=== PATIENT | female | born 1995 | race Native Hawaiian/Other Pacific Islander ===

== ENCOUNTER 2022-12-05 10:26 | Outpatient (AMB) | payer OTHER, SELFPAY ==
[2022-12-05 10:29] VITALS: BP 90/62; PULSE 65; O2SAT 98; BMI 28.5
--- NOTE | 2022-12-05 10:29 | MHC.PC.OV ---
Vital Signs 12/05/22 10:29 Height 4 ft 11 in Weight 141 lb 0.2 oz BMI 28.5 BP 90/62 Blood Pressure Location Lt brachial Position Sitting Pulse 65 Pulse Source Pulse Oximeter Temp Source Skin Pulse Oximetry (%) 98 Oxygen Delivery Method Room Air Intake Visit Reasons: Annual Exam Intake Note: Patient is here today for a physical. Rn Building Required: No Allergies codeine [CODEINE] Allergy (Severe, Verified 12/05/22 10:47) SWELLING acetaminophen [Tylenol-Codeine] Allergy (Unknown, Verified 12/05/22 10:47) SWELLING Medication List - Last Reconciled 12/05/22 by JUNE Ross No Known Home Meds Tobacco use date assessed: 12/05/22 Dental Screening Dental Screen Date: 12/05/22 Did you have a dental visit in the last 12 months?: No Did you have a dental problem in the last 6 months where you did not have access to dental care?: No HPI Annual Exam HPI Details Patient is a 27-year-old female who presents today for physical exam. Patient of Dr. Olson. Medical history significant for macromastia. Patient denies shortness of breath or chest pain. She reports normal Pap smear 2020 with [facility]. Tdap 06/2021. Patient is due for dental exam, she will call. Does not see eye doctor, denies problems with her eyes. [facility] Surgical History History of Family History Father GERD (gastroesophageal reflux disease) Mother GERD (gastroesophageal reflux disease) Anemia Maternal Grandmother Breast cancer Diabetes Hypertension Paternal Grandfather Diabetes Hypertension Social History Housing: Apartment Alcohol intake: former Patient Tobacco Use Status: Former Tobacco user Tobacco use type: Cigarette e-Cigarette/Vaping Use: Never Used Second Hand Smoke Exposure: No service: No Current occupational status: unemployed Cognitive needs: No Hearing needs: No Vision needs: No Questionnaire PHQ-9 Over the last 2 weeks, how often have you been bothered by any of the following problems? 1. Little interest or pleasure in doing things: not at all 2. Feeling down, depressed, or hopeless: not at all 3. Trouble falling or staying asleep, or sleeping too much: not at all 4. Feeling tired or having little energy: not at all 5. Poor appetite or overeating: not at all 6. Feeling bad about yourself - or that you are a failure or have let yourself or your family down: not at all 7. Trouble concentrating on things, such as reading the newspaper or watching television: not at all 8. Moving or speaking so slowly that other people could have noticed. Or the opposite - being so fidgety or restless that you have been moving around a lot more than usual: not at all 9. Thoughts that you would be better off or of hurting yourself in some way: not at all Total score: 0 Depression Screening Interpretation: Negative Depression Screening Done: Yes 02723 - PHQ-9 Billing: Yes Source: Developed by Drs. Lm Nice, Kennedi Roe, Darryl Harvey and colleagues, with an educational mckayla from [employer]. Thrive Questionnaire Date Thrive assessed: 12/05/22 I am a: Patient What is your living situation today?: I have a steady place to live Within the past 12 months, did the food you bought not last and you didn't have the money to get more?: Never true Within the past 12 months, did you worry whether your food would run out before you got money to buy more?: Never true Do you have trouble paying for medicines?: No Do you have trouble getting transportation to medical appointments?: No Do you have trouble paying your heating and electricity bill?: No Do you have trouble taking care of your child, family member or friend?: No Do you have trouble with day-to-day activities such as bathing, preparing meals, shopping, managing finances, etc.?: No Are you currently unemployed and looking for a job?: No Are you interested in more education?: No Currently or been in a relationship where the following occur: no concerns reported AUDIT C Alcohol Use Questionnaire (AUDIT-C) 1. How often do you have a drink containing alcohol?: Never 2. How many drinks containing alcohol do you have on a typical day when you are drinking?: 1 or 2 (0) 3. How often do you have six or more drinks on one occasion?: Never Total Score: 0 Score Reviewed/Action Taken: No ERNESTINE-7 AMB Questionnaire ERNESTINE-7 Date ERNESTINE - 7 assessed: 12/05/22 Feeling nervous, anxious, or on edge: 0 = Not at all Not being able to stop or control worryin = Not at all Worrying too much about different things: 0 = Not at all Trouble relaxin = Not at all Being so restless that it is hard to sit still: 0 = Not at all Becoming easily annoyed or irritable: 0 = Not at all Feeling afraid as if something awful might happen: 0 = Not at all Total ERNESTINE-7 score (0-4 normal; 5-9 mild; 10-14 moderate; 15-21 severe): 0 Source: Developed by Drs. Lm Nice, Kennedi Roe, Darryl Harvey and colleagues, with an educational mckayla from [employer]. ERNESTINE-7 Assessment Billing ERNESTINE-7 Assessment Tool: ERNESTINE-7 Assessment 93491 Review of Systems Const Denies body aches, Denies chills, Denies fever(s) and Denies headache(s) Eyes Denies change in vision ENT Denies dizziness, Denies otalgia, Denies headache(s), Denies nasal discharge, Denies sinus pain and Denies sore throat Card Denies chest pain, Denies edema, Denies lightheadedness and Denies dyspnea Resp Denies cough, Denies dyspnea and Denies wheezing GI Denies abdominal pain, Denies constipation, Denies diarrhea, Denies nausea and Denies vomiting Denies dysuria Musc Denies myalgias Skin/Breast Denies rash Neuro Denies dizziness and Denies headache(s) Aller/Immun Denies wheezing Physical exam (Primary Care) Vital Signs: Last Vital Signs Pulse 65 12/05/22 10:29 BP 90/62 12/05/22 10:29 Pulse Ox 98 12/05/22 10:29 Oxygen Delivery Method Room Air 12/05/22 10:29 BMI result Body Mass Index 28.5 Tobacco/Smoking Status: Tobacco use Status Tobacco use date assessed 12/05/22 12/05/22 10:34 Patient Tobacco Use Status Former Tobacco user 12/05/22 10:34 Tobacco use type Cigarette 12/05/22 10:34 e-Cigarette/Vaping Use Never Used 10/05/23 10:34 PHQ-9: PHQ-9 Score PHQ-9: Total score 0 12/05/22 10:48 Depression Screening Interpretation: Negative Thrive Assessment: Date of Thrive Assessment Date Thrive assessed 12/05/22 12/05/22 10:34 Currently or been in a relationship where the following occur: no concerns reported Const General: cooperative and no acute distress Orientation/consciousness: patient oriented x3 HENMT Head: Yes normocephalic and Yes atraumatic Ears: TM's normal bilaterally Face and sinus: Yes sinuses nontender Mouth: oropharynx normal and moist mucous membranes Throat: Yes posterior oropharynx normal Eyes General: appearance normal, both eyes and all related structures Pupils: Equal, round and reactive pupils present EOM: EOMs intact bilaterally Neck Neck: Yes normal visual inspection, Yes full ROM and Yes no lymphadenopathy Thyroid: Thyroid normal Resp Effort & Inspection: normal respiratory effort and able to speak in complete sentences Auscultation: clear to auscultation bilaterally, no crackles, no rales, no rhonchi and no wheezes Cardio Rate: regular rate Rhythm: regular rhythm Heart sounds: S1 normal heart sound present, S2 normal heart sound present and no murmurs GI Palpation (GI): Soft to palpation, not firm, nontender, no guarding, not rigid and no hepatosplenomegaly Auscultation: normal bowel sounds General: No CVA tenderness Back/Spine/Pelvis Back: No CVA tenderness Skin General skin exam: no rashes or lesions noted Neuro General: patient oriented x3 Cranial nerves: Yes Equal, round and reactive pupils present Gait exam (Neuro): Normal gait present Extrem General: Yes full ROM and No edema Office Procedures Flu Questionnaire Does the patient have a severe egg allergy?: No Does the patient have severe life threatening allergies?: No Does the patient have a fever or illness today?: No Has the patient ever had Guillain-[place] Syndrome?: No Has the patient ever had any past reaction to a flu shot?: No Immunizations flu vacc [id number] 6mos up(PF) 60 mcg(15 mcgx4)/0.5 mL IM syringe Performing Provider: JUNE Ross [facility] Documented (not given) by: HARJEET Mueller on 12/05/22 10:42 Reason Not Given: Patient Refused Assessment and Plan Assessment & Plan (1) Physical exam: Code(s): Z00.00 - Encounter for general adult medical examination without abnormal findings Plan: Repeat in 1 year Blood work ordered Orders: Orders Influenza [id number] Immunization Today Z23 - Encounter for immunization Complete Blood Count Auto Diff Today Z00.00 - Encounter for general adult medical examination without abnormal findings Vitamin D 25-OH Total Today Z00.00 - Encounter for general adult medical examination without abnormal findings Vitamin B12 and Folate Today Z00.00 - Encounter for general adult medical examination without abnormal findings TSH reflex Free T4 Today Z00.00 - Encounter for general adult medical examination without abnormal findings Comprehensive [place]. Panel Fast Today Z00.00 - Encounter for general adult medical examination without abnormal findings Coding Level of Care Code Est Pt Prev Care 18-39y(46249) Diagnoses Physical exam Z00.00 Additional Codes ERNESTINE-7 Assessment Billing - ERNESTINE-7 Assessment Tool: ERNESTINE-7 Assessment 46399 ([id number])
== END 2022-12-05 10:57 | disposition home or self-care (01) ==
PROVIDERS: PCP Internal Medicine; Visit Provider Nurse Practitioner Family
DX: Z00.00 Encounter for general adult medical examination without abnormal findings (principal)
CPT/HCPCS: 99395

== ENCOUNTER 2022-12-05 11:03 | Outpatient (REF) | payer OTHER, SELFPAY | END 2022-12-05 11:04 | disposition home or self-care (01) | LOC: HO.LAB 11:03 | PROVIDERS: PCP Internal Medicine; Visit Provider Nurse Practitioner Family | DX: Z00.00 Encounter for general adult medical examination without abnormal findings (principal) | CPT/HCPCS: 36415; 80053; 82306; 82607; 82746; 84443; 85025 ==

== ENCOUNTER 2023-06-13 12:36 | Outpatient (REF) | payer OTHER, SELFPAY ==
--- NOTE | ~2023-06-13 | XR_ITS ---
EXAMINATION: XR LUMBOSACRAL SPINE CLINICAL INFORMATION: Low back pain, unspecified COMPARISON: None available. TECHNIQUE: Three views of the lumbosacral spine. FINDINGS: No fracture. There are 5 nonrib-bearing lumbar-type vertebral bodies. The height of vertebral bodies is well-maintained. There is straightening of the usual lumbar lordosis which can be seen with muscle spasm. The disc space and facet joints are well maintained. There is no spondylolisthesis. XR/XR lumbar spine 2-3V IMPRESSION: Muscle spasm.
== END 2023-06-13 12:37 | disposition home or self-care (01) ==
LOC: HO.XRAY 12:36
PROVIDERS: PCP Internal Medicine; Visit Provider Internal Medicine
DX: M54.50 Low back pain, unspecified (principal)
CPT/HCPCS: 72100

== ENCOUNTER 2023-12-15 10:13 | Outpatient (AMB) | payer OTHER, SELFPAY ==
--- NOTE | 2023-12-15 10:18 | A.OFFPC_ITS ---
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 Accompanied by: Self / Same As Patient Allergies codeine [CODEINE] Allergy (Severe, Verified 12/15/23 10:31) SWELLING acetaminophen [Tylenol-Codeine] Allergy (Unknown, Verified 12/15/23 10:31) SWELLING Medication List - Last Reconciled 12/15/23 by Kimber Snow MD No Known Home Meds Tobacco use date assessed: 12/15/23 Dental Screening Dental Screen Date: 12/15/23 Did you have a dental visit in the last 12 months?: No Did you have a dental problem in the last 6 months where you did not have access to dental care?: No Was dental information given to patient?: Patient has dentist HPI HPI Comments History of Present Illness Details This is a 28-year-old female that comes for her physical exam. She denies any acute complaints. Last Pap smear was 2023 as per patient was normal. No chest pain or shortness on breath. Declines flu vaccine. [facility] Surgical History History of Family History Father GERD (gastroesophageal reflux disease) Mother GERD (gastroesophageal reflux disease) Anemia Maternal Grandmother Breast cancer Diabetes Hypertension Paternal Grandfather Diabetes Hypertension Social History Housing: Apartment Alcohol intake: former Patient Tobacco Use Status: Former Tobacco user Tobacco use type: Cigarette e-Cigarette/Vaping Use: Never Used Second Hand Smoke Exposure: No service: No Current occupational status: unemployed Cognitive needs: No Hearing needs: No Vision needs: No Questionnaire PHQ-9 Over the last 2 weeks, how often have you been bothered by any of the following problems? 1. Little interest or pleasure in doing things: not at all 2. Feeling down, depressed, or hopeless: not at all 3. Trouble falling or staying asleep, or sleeping too much: several days 4. Feeling tired or having little energy: several days 5. Poor appetite or overeating: not at all 6. Feeling bad about yourself - or that you are a failure or have let yourself or your family down: not at all 7. Trouble concentrating on things, such as reading the newspaper or watching television: not at all 8. Moving or speaking so slowly that other people could have noticed. Or the opposite - being so fidgety or restless that you have been moving around a lot more than usual: not at all 9. Thoughts that you would be better off or of hurting yourself in some w ay: not at all Total score: 2 Depression Screening Interpretation: Positive Depression Screening Follow-up: Existing condition and Follow-up Visit Requested Depression Screening Done: Yes 97479 - PHQ-9 Billing: Yes Source: Developed by Drs. Lm Nice, Kennedi Roe, Darryl Harvey and colleagues, with an educational mckayla from [employer]. Thrive Questionnaire Date Thrive assessed: 12/15/23 I am a: Patient What is your living situation today?: I have a steady place to live Within the past 12 months, did the food you bought not last and you didn't have the money to get more?: Never true Within the past 12 months, did you worry whether your food would run out before you got money to buy more?: Never true Do you have trouble paying for medicines?: No Do you have trouble getting transportation to medical appointments?: No Do you have trouble paying your heating and electricity bill?: No Do you have trouble taking care of your child, family member or friend?: No Do you have trouble with day-to-day activities such as bathing, preparing meals, shopping, managing finances, etc.?: No Are you currently unemployed and looking for a job?: No Are you interested in more education?: No Please select the resources that you would like help with: None Currently or been in a relationship where the following occur: No concerns reported THRIVE Score: 0 AUDIT C Alcohol Use Questionnaire (AUDIT-C) 1. How often do you have a drink containing alcohol?: Never Total Score: 0 Score Reviewed/Action Taken: No ERNESTINE-7 AMB Questionnaire ERNESTINE-7 Date ERNESTINE - 7 assessed: 10/14/24 Feeling nervous, anxious, or on edge: 0 = Not at all Not being able to stop or control worryin = Not at all Worrying too much about different things: 0 = Not at all Trouble relaxin = Not at all Being so restless that it is hard to sit still: 0 = Not at all Becoming easily annoyed or irritable: 0 = Not at all Feeling afraid as if something awful might happen: 0 = Not at all Total ERNESTINE-7 score (0-4 normal; 5-9 mild; 10-14 moderate; 15-21 severe): 0 Source: Developed by Drs. Lm Nice, Kennedi Roe, Darryl Harvey and colleagues, with an educational mckayla from [employer]. ERNESTINE-7 Assessment Billing ERNESTINE-7 Assessment Tool: ERNESTINE-7 Assessment 60460 Review of Systems Const All systems reviewed & are unremarkable except as noted in HPI and below Card Denies chest pain at rest, Denies chest pain with activity, Denies edema, Denies irregular heart rhythm, Denies claudication, Denies dyspnea, Denies dyspnea on exertion, Denies orthopnea, Denies paroxysmal nocturnal dyspnea and Denies slow heart rate Resp Denies cough, Denies dyspnea and Denies dyspnea on exertion GI Denies abdominal pain, Denies change in bowel habits, Denies excessive flatus, Denies nausea and Denies vomiting Denies urinary incontinence, Denies urinary hesitancy and Denies urinary urgency Musc Denies abnormal gait, Denies atrophy, Denies deformity and Denies limited range of motion Skin/Breast Denies bleeding lesions, Denies changing lesions and Denies rash Neuro Denies abnormal gait, Denies behavioral changes and Denies lack of coordination Psych Denies behavioral changes Physical exam (Primary Care) Vital Signs: Last Vital Signs BP 110/72 12/15/23 10:19 BMI result Body Mass Index 29.1 BMI Assessment/Plan discussion: High BMI High, discussed plan: lifestyle and weight reduction Tobacco/Smoking Status: Tobacco use Status Tobacco use date assessed 12/15/23 12/15/23 10:24 Patient Tobacco Use Status Former Tobacco user 12/15/23 10:24 Tobacco use type Cigarette 12/15/23 10:24 e-Cigarette/Vaping Use Never Used 12/15/23 10:24 PHQ-9: PHQ-9 Score PHQ-9: Total score 2 12/15/23 10:24 Depression Screening Interpretation: Positive Depression Screening Follow-up: Existing condition and Follow-up Visit Requested Thrive Assessment: Date of Thrive Assessment Date Thrive assessed 12/15/23 12/15/23 10:24 Currently or been in a relationship where the following occur: No concerns reported [facility] Head: Yes normal to inspection, Yes normocephalic and Yes atraumatic Ears: external ears normal Eyes General: appearance normal, both eyes and all related structures Eyelids: Yes eyelids normal Conjunctivae: conjunctivae normal Neck Neck: Yes normal visual inspection and Yes supple Resp Effort & Inspection: normal respiratory effort Auscultation: clear to auscultation bilaterally Cardio Jugular venous distension: no JVD Rate: regular rate Rhythm: regular rhythm Heart sounds: S1 normal heart sound present and S2 normal heart sound present GI Inspection: Yes normal to inspection Palpation (GI): Soft to palpation and nontender Auscultation: normal bowel sounds Skin General skin exam: no rashes or lesions noted Neuro General: no focal motor deficits Extrem General: Yes full ROM Psych Appearance: grossly normal Office Procedures Flu Questionnaire Does the patient have a severe egg allergy?: No Immunizations Fluarix Triv [id number] (PF) 45 mcg (15 mcg x 3)/0.5 mL IM syringe Performing Provider: Kimber Snow MD [facility] Documented (not given) by: HARJEET Donnelly on 12/15/23 10:24 Reason Not Given: Patient Refused Coding Level of Care Code Est Pt Prev Care 18-39y(77033) Diagnoses Physical exam Z00.00 Additional Codes ERNESTINE-7 Assessment Billing - ERNESTINE-7 Assessment Tool: ERNESTINE-7 Assessment 95234 ([id number]) Time Spent (min) 30 Assessment & Plan Assessment & Plan (1) Physical exam: Code(s): Z00.00 - Encounter for general adult medical examination without abnormal findings Category: Medical Plan: Repeat in a year. Orders: Orders Influenza [id number] Immunization Today Z23 - Encounter for immunization Complete Blood Count Auto Diff Today D64.9 - Anemia, unspecified IRON PROFILE Today D64.9 - Anemia, unspecified Vitamin D 25-OH Total Today E55.9 - Vitamin D deficiency, unspecified Lipid Panel Today Z00.00 - Encounter for general adult medical examination without abnormal findings Comprehensive [place]. Panel Fast Today Z00.00 - Encounter for general adult medical examination without abnormal findings
[2023-12-15 10:19] VITALS: BP 110/72; BMI 29.1
== END 2023-12-15 10:40 | disposition home or self-care (01) ==
PROVIDERS: PCP Internal Medicine; Visit Provider Internal Medicine
DX: Z23 Encounter for immunization (principal); Z00.00 Encounter for general adult medical examination without abnormal findings

== ENCOUNTER 2024-08-02 15:44 | Outpatient (AMB) | payer OTHER, SELFPAY ==
--- NOTE | 2024-08-02 15:48 | A.OFFPC_ITS ---
Vital Signs 08/02/24 15:49 Height 4 ft 11 in Weight 149 lb BMI 30.1 BP 120/70 Blood Pressure Location Lt brachial Position Sitting Intake Visit Reasons: Stomach Issues Jukebox Checker Required: No Accompanied by: Self / Same As Patient Allergies codeine [CODEINE] Allergy (Severe, Verified 08/02/24 16:01) SWELLING acetaminophen [Tylenol-Codeine] Allergy (Unknown, Verified 08/02/24 16:01) SWELLING Medication List - Last Reconciled 08/02/24 by Kimber Snow MD No Known Home Meds Tobacco use date assessed: 08/02/24 Dental Screening Dental Screen Date: 08/02/24 Did you have a dental visit in the last 12 months?: Yes Did you have a dental problem in the last 6 months where you did not have access to dental care?: No Was dental information given to patient?: Patient has dentist HPI HPI Comments History of Present Illness Details The patient is a 29-year-old female presenting with abdominal bloating and anxiety with palpitations. The abdominal bloating is frequent and aggravated by various foods, including bread, flour, and milk, though it occurs persistently regardless of dietary intake. She has a history of prolonged menstrual periods and was diagnosed with an ovarian cyst a few years ago. She denies any diarrhea or blood in stools and reports normal bowel movements. Additionally, she exhibits signs of anxiety, as evidenced by eyelid twitching, and describes episodes of sudden, unexpected palpitations while at rest, which she attributes to stress. [facility] Surgical History History of Family History Father GERD (gastroesophageal reflux disease) Mother GERD (gastroesophageal reflux disease) Anemia Maternal Grandmother Breast cancer Diabetes Hypertension Paternal Grandfather Diabetes Hypertension Social History Housing: Apartment Alcohol intake: former Patient Tobacco Use Status: Former Tobacco user Tobacco use type: Cigarette e-Cigarette/Vaping Use: Never Used Second Hand Smoke Exposure: No service: No Current occupational status: unemployed Cognitive needs: No Hearing needs: No Vision needs: No Questionnaire PHQ-9 Over the last 2 weeks, how often have you been bothered by any of the following problems? 1. Little interest or pleasure in doing things: several days 2. Feeling down, depressed, or hopeless: several days 3. Trouble falling or staying asleep, or sleeping too much: several days 4. Feeling tired or having little energy: several days 5. Poor appetite or overeating: several days 6. Feeling bad about yourself - or that you are a failure or have let yourself or your family down: several days 7. Trouble concentrating on things, such as reading the newspaper or watching television: several days 8. Moving or speaking so slowly that other people could have noticed. Or the opposite - being so fidgety or restless that you have been moving around a lot more than usual: not at all 9. Thoughts that you would be better off or of hurting yourself in some way: not at all Total score: 7 Depression Screening Interpretation: Positive Depression Screening Follow-up: Existing condition and Follow-up Visit Requested Depression Screening Done: Yes 89727 - PHQ-9 Billing: Yes Source: Developed by Drs. Lm Nice, Kennedi Roe, Darryl Harvey and colleagues, with an educational mckayla from [employer]. Thrive Questionnaire Date Thrive assessed: 08/02/24 I am a: Patient What is your living situation today?: I have a steady place to live Within the past 12 months, did the food you bought not last and you didn't have the money to get more?: Never true Within the past 12 months, did you worry whether your food would run out before you got money to buy more?: Never true Do you have trouble paying for medicines?: No Do you have trouble getting transportation to medical appointments?: No Do you have trouble paying your heating and electricity bill?: Yes Do you have trouble taking care of your child, family member or friend?: No Do you have trouble with day-to-day activities such as bathing, preparing meals, shopping, managing finances, etc.?: No Are you currently unemployed and looking for a job?: No Are you interested in more education?: Yes Please select the resources that you would like help with: None Currently or been in a relationship where the following occur: No concerns reported THRIVE Score: 1 AUDIT C Alcohol Use Questionnaire (AUDIT-C) 1. How often do you have a drink containing alcohol?: Never Total Score: 0 Score Reviewed/Action Taken: No ERNESTINE-7 AMB Questionnaire ERNESTINE-7 Date ERNESTINE - 7 assessed: 08/02/24 Feeling nervous, anxious, or on edge: 0 = Not at all Not being able to stop or control worryin = Not at all Worrying too much about different things: 0 = Not at all Trouble relaxin = Not at all Being so restless that it is hard to sit still: 0 = Not at all Becoming easily annoyed or irritable: 0 = Not at all Feeling afraid as if something awful might happen: 0 = Not at all Total ERNESTINE-7 score (0-4 normal; 5-9 mild; 10-14 moderate; 15-21 severe): 0 Source: Developed by Drs. Lm Nice, Kennedi Roe, Darryl Harvey and colleagues, with an educational mckayla from [employer]. ERNESTINE-7 Assessment Billing ERNESTINE-7 Assessment Tool: ERNESTINE-7 Assessment 28940 Review of Systems Const All systems reviewed & are unremarkable except as noted in HPI and below Card Denies chest pain at rest, Denies chest pain with activity, Reports rapid heart rate, Denies edema, Denies irregular heart rhythm, Denies claudication, Denies dyspnea, Denies dyspnea on exertion, Denies orthopnea, Denies paroxysmal nocturnal dyspnea and Denies slow heart rate Resp Denies cough, Denies dyspnea and Denies dyspnea on exertion GI Reports abdominal pain, Reports bloating, Denies change in bowel habits, Denies excessive flatus, Denies nausea and Denies vomiting Denies urinary incontinence, Denies urinary hesitancy and Denies urinary urgency Physical exam (Primary Care) Vital Signs: Last Vital Signs BP 120/70 08/02/24 15:49 BMI result Body Mass Index 30.1 Tobacco/Smoking Status: Tobacco use Status Tobacco use date assessed 08/02/24 08/02/24 15:53 Patient Tobacco Use Status Former Tobacco user 08/02/24 15:53 Tobacco use type Cigarette 08/02/24 15:53 e-Cigarette/Vaping Use Never Used 08/02/24 15:53 PHQ-9: PHQ-9 Score PHQ-9: Total score 7 08/02/24 16:04 Depression Screening Interpretation: Positive Depression Screening Follow-up: Existing condition and Follow-up Visit Requested Thrive Assessment: Date of Thrive Assessment Date Thrive assessed 08/02/24 08/02/24 15:53 Currently or been in a relationship where the following occur: No concerns reported Resp Effort & Inspection: normal respiratory effort Auscultation: clear to auscultation bilaterally Cardio Jugular venous distension: no JVD Rate: regular rate Rhythm: regular rhythm Heart sounds: S1 normal heart sound present and S2 normal heart sound present GI Inspection: Yes normal to inspection Palpation (GI): Soft to palpation and nontender Auscultation: normal bowel sounds Extrem General: Yes full ROM Coding Level of Care Code Est Pt Level 3 (69009) Complex EM visit Add On G2211 Diagnoses Tachycardia R00.0 Abdominal bloating R14.0 Additional Codes ERNESTINE-7 Assessment Billing - ERNESTINE-7 Assessment Tool: ERNESTINE-7 Assessment 37084 ([id number]) PHQ-9 - 49918 - PHQ-9 Billing: Yes ([id number]) Time Spent (min) 19 Assessment & Plan Assessment & Plan (1) Tachycardia: Code(s): R00.0 - Tachycardia, unspecified Category: Medical (2) Abdominal bloating: Code(s): R14.0 - Abdominal distension (gaseous) Category: Medical Plan I plan to perform an abdominal ultrasound and test for celiac disease given her gastrointestinal symptoms. I prescribed a medication for bloating, to be taken with meals, and instructed the patient to stop if any psychotic side effects occur. To assess her anxiety-related palpitations, I plan to use a Holter monitor to evaluate her heart activity over 24 to 48 hours. Blood work will be completed to provide further insight into her health. She will have the freedom to conduct blood tests at her convenience and without fasting. Patient was informed and verbally consented to the use of an ambient scribe for clinic note documentation during this visit. I discussed with the patient the likely diagnosis of bloating related to food sensitivities and the possibility of anxiety contributing to her palpitations. The management plan includes abdominal ultrasound and laboratory tests for celiac disease. Medications for bloating were explained, with emphasis on their administration and potential side effects like psychosis, which warrant immediate discontinuation. Regarding her palpitations, we discussed using a Holter monitor to document any irregularities, explaining the process and keeping a symptom diary. I also emphasized the importance of contacting me if any new or worsening symptoms occur. Orders: Orders Complete Blood Count Auto Diff Today R14.0 - Abdominal distension (gaseous) Comprehensive Met. Panel Today R14.0 - Abdominal distension (gaseous) Celiac Diagnostic Gliadin TTG Today R14.0 - Abdominal distension (gaseous) ECG holter monitor 48 hour Today R00.0 - Tachycardia, unspecified Thyroid Stimulating Hormone Today R00.0 - Tachycardia, unspecified Medications: New dicyclomine 20 mg PO TID 90 tabs 3RF 30 days R14.0 - Abdominal distension (gaseous)
[2024-08-02 15:49] VITALS: BP 120/70; BMI 30.1
--- OUTSIDE RECORDS SUMMARY | 2024-08-02 16:51 | XMS_ITS | Clinical Summary ---
Author Organization [facility] [address] [facility] Address [address] [place], [place] Phone Care Team Providers Care Franchise Sales Representative Name Role Phone Bre Smith MD Primary Care Provider [phone] Allergies Active Allergy Reactions Criticality Noted Date Comments Codeine Swelling High 05/22/2017 Medications cholecalciferol (VITAMIN D-3) 50 mcg (2,000 unit) capsule Take 1 capsule (2,000 Units total) by mouth 1 (one) time each day. 05/12/2023 Active methocarbamoL (ROBAXIN) 750 mg tablet TAKE 1 TABLET BY MOUTH EVERY 8 HOURS X3 DAYS 06/23/2023 Active norethindrone-e thinyl estradiol (JUNEL FE 03/22) 1 mg-20 mcg (21)/75 mg (7) per tablet Take 1 tablet by mouth 1 (one) time each day. 28 tablet 11 06/22/2024 6 Active Active Problems Problem Noted Date Diagnosed Date Genital herpes 02/29/2020 Overview (06/21/2024): Episodic treament Last Assessment & Plan: Prescription for Valtrex suppression ordered today. Patient aware to start at 36 weeks. Encounters Date Type Department Care Team Description 07/19/2024 Telephone Obstetrics and Gynecology - [facility] [place] [address] [place] [id number] Cecily Proctor DO Metrorrhagia 06/22/2024 3:30 PM EDT Consult Obstetrics & Gynecology - [address] [address] Cecily Proctor DO Bilateral ovarian cysts (Primary Dx); Irregular menses 06/03/2024 Telephone Obstetrics & Gynecology - [facility] [address] [place] [address] Opal Erwin RN 06/03/2024 Telephone Obstetrics & Gynecology - [facility] [address] [place] [address] Shantal Tellez CNM Lab Results 06/01/2024 12:48 PM EDT - 06/01/2024 11:59 PM EDT Hospital Encounter [facility] Ultrasound [address] [place] [address] Discharge Disposition: Home or Self Care from Last 3 Months Immunizations Name Administration Dates Next Due Influenza Quadravalent, MDCK , 0.5ml, preservative free (Flucelvax) 6mo and older 12/04/2017 Tdap Tetanus diptheria acell ular pertussis (Boostrix; Adacel) 7yo and older 06/20/2021,07/18/2020,10/20/2017 Surgical History Surgery Date Site/Laterality Comments TUBAL LIGATION PROCEDURE: HISTORICAL TUBAL LIGATION; COMMENT: [facility] Medical History Medical History Date Comments History of shoulder dystocia in prior 2017 DX:History of shoulder dysto rufino in prior Genital herpes DX:Genital herpe s Type A blood, Rh positive 2019 DX:Typ e A blood, Rh positive History of 2019 novel naylor virus disease (COVID-19) 04/03/2021 DX:History of 2019 novel cor onavirus disease (COVID-19); COMMENT: Tested positive 03-21-21 COVID in @ aprrox 14 wks gestation *Mildly symptomatic (signs or sx without SOB or abnormal imaging) OR Moderately symptomatic (lower respiratory disease by clinical or imaging assessment AND O2 sat >93% RA): 81 mg ASA daily at diagnosis, growth 4-6 weeks after COVID or 32 weeks, whichever * Sterilization 02/14/2021 DX:Sterilization ; COMMENT: Desires tubal ligation, referral to [facility] placed Desires Depo-Provera prior to discharge after delivery. Supervision of other normal 02/14/2021 DX:Supervision of other normal ; COMMENT: 1. [facility] site: [facility] [address] [facility], [address] 2. Delivery site: [facility] 3. Mobile Mommas: Yes 4. Dating criteria: 1st trimester ultrasound only 5. Blood type: Lab Results Component Value Date BLDTYPE A POSITIVE 03/01/2020 6. Genetic screening: Date: Result: FIRST screen negative 6. GBS: Date: 7. FOB n* Marijuana use 05/26/2017 DX:Marijuana use ; COMMENT: 05/22/17 + Mj an initial ob intake; pt admitted to occasional use and stopped when first learned of . Plan random UDS. Family History Medical History Relation Name Comments Hypertension Father Breast cancer Maternal Grandmother Diabetes Maternal Grandmother Hypertension Maternal Grandmother Arthritis Mother BRCA negative Other: nonverbal Son being teste d for autism - early intervention Ovarian cancer Neg Hx Relation Name Status Comments Father Alive Maternal Grandmother Mother Alive Son Alive Social History Tobacco Use Types Packs/Day Years Used Date Smoking Tobacco: Never Smokeless Tobacco: Never Alcohol Use Standard Drinks/Week Comments No 0 (1 standard drink = 0.6 oz pur e alcohol) Comments No Sex and Gender Information Value Date Recorded Sex Assigned at Female 03/30/2024 10:43 AM EST Legal Sex Female 9:07 AM EST Gender Identity Female 03/30/2024 10:43 AM EST Sexual Orientation Straight 03/30/2024 10 :43 AM EST Obstetrics History Para Term AB IAB SAB Ectopic Multiple Livin g Live Births 3 3 3 3 3 Date Outcome GA Total Labor Labor/2nd/3rd Weight Sex Type Anes PTL Mary A1 A5 Name Clin 2017 Term 39w 1d 3402 g (120 oz) M Vag-S pont None N Livin g 4 7 Vamsi Elias CNM Complications:Shoulder Dysto rufino,Carrier of group B Streptococcus,Marijuana user Delivery Location:[facility] Comments:30 second dawit ulder dystocia , srom 2020 Term 39w 4d 3470 g (122.4 oz) F Vag-S pont None Livin g Vaishali Cui , SHERI Complications:None Delivery Location:[facility] 2021 Term 37w 3d CS-LT ranv Livin g Delivery Location:[facility] Comments:pt elected fo r primary c/s r/t hx of shoulder dystocias Last Filed Vital Signs Vital Sign Reading Time Taken Comments Blood Pressure 112/74 06/22/2024 3:39 PM EDT Pulse 73 06/22/2024 3:39 PM EDT Temperature - - Respiratory Rate - - Oxygen Saturation - - Inhaled Oxygen Concentration - - Weight 67.1 kg (148 lb) 06/22/2024 3:39 PM EDT Height 149.9 cm (4' 11 ) 06/22/2024 3:39 PM EDT Body Mass Index 29.89 06/22/2024 3:39 PM EDT Plan of Treatment Upcoming Encounters Date Type Department Care Team (Late st Contact Info) Description 09/21/2024 4:00 PM EDT Office Visit Obstetrics & Gynecology - [address] [phone] Cecily Proctor, DO [address] [place] [address] Health Maintenance Due Date Last Done Comments Hepatitis B Vaccines (1 of 3 - 19+ 3-dose series) 2013 Depression Screening 02/03/2022 HIV Screening 02/03/2022 Hepatitis C Screening 02/03/2022 Social Influencers of Health Screening 02/03/2022 COVID-19 Vaccine (1 - 2023-2 5 season) 2023 Influenza Vaccine (Season Ended) 2024 12/04/2017 Cervical Cancer Screening: P ap Smear 05/11/2026 05/12/2023, 12/02/2019 DTaP,Tdap,and Td Vaccines (4 - Td or Tdap) 06/21/2031 06/20/2021, 07/18/2020, 10/20/2017 HIB Vaccines Aged Out No longer eligi ble based on patient's age to complete this topic HPV Vaccines Aged Out No longer eligi ble based on patient's age to complete this topic Hepatitis A Vaccines Aged Out No long er eligible based on patient's age to complete this topic IPV Vaccines Aged Out No longer eligi ble based on patient's age to complete this topic MMR Vaccines Aged Out No longer eligi ble based on patient's age to complete this topic Meningococcal ACWY Vaccine Aged Out N o longer eligible based on patient's age to complete this topic Meningococcal B Vaccine Aged Out No l onger eligible based on patient's age to complete this topic Pneumococcal Vaccine: Pediatrics (0 to 5 Years) and At-Risk Patients (6 to 64 Years) Aged Out No longer eligible b ased on patient's age to complete this topic RSV Immunization Patients Under 20 months Aged Out No longer eligible b ased on patient's age to complete this topic Varicella Vaccines Aged Out No longer eligible based on patient's age to complete this topic Procedures Procedure Name Priority Date/Time Associated Diagnosis Comments US PELVIS NON OB COMPLETE W TRANSVAGINAL Routine 06/01/2024 1:30 PM EDT Right ovarian cyst PAP SMEAR Routine 05/12/2023 from Last 3 Months or Most Recently Relevant to Health Maintenance Results * US Pelvis Non OB Complete w Transvaginal (06/01/2024 1:30 PM EDT) Anatomical Region Laterality Modality Body, Pelvis Ultrasound 06/01/2024 1:51 PM EDT Impressions 06/01/2024 1:58 PM EDT There is an oval 2.0 cm echogenic abnormality within the right ovary. I cannot confirm stability. Direct comparison with any previous recent studies would be helpful. Depending upon how it might alter patient management, MRI might be helpful in further characterization. -------- FINAL REPORT -------- Dictated By: Srini Naidu Dictated Date: 06/01/2024 13:51 ET Assigned Physician: Srini Naidu Reviewed and Electronically Signed By: Srini Naidu Signed Date: 06/01/2024 13:58 ET Workstation ID: [id number] Transcribed By: Self Edit Transcribed Date: 06/01/2024 13:51 ET Narrative 06/01/2024 1:58 PM EDT EXAM: PELVIC ULTRASOUND CLINICAL INFORMATION: Follow-up. Suspect right dermoid. TECHNIQUE: Transcutaneous pelvic ultrasound. Transvaginal scanning was performed following voiding to better evaluate the uterine contents and adnexa. Color mapping was performed. Doppler spectral analysis was performed. Comparison: No recent prior studies are available for comparison. Selected portions of ultrasound 05/29/17. FINDINGS: Quality: Adequate Expected region of vagina: No suspicious abnormality Cervix: The estimated cervical length is approximately 3.0 cm. No suspicious abnormality. Uterine position: Retroverted and mildly retroflexed Uterine size: 9.8 x 3.6 x 4.9 cm Endometrium: 0.4 cm. Smooth and homogeneous. Myometrium: Homogeneous and within normal limits. Uterine contour: Smooth Right ovary: The right ovary measures approximate 4.0 x 2.5 x 2.8 cm. There is a homogeneous echogenic oval area within the right ovary which measures 2.0 cm in greatest dimension. There is no shadowing. No abnormal color signal. ?? Color mapping: ??Color signal present within the remainder of the right ovary. ?? Doppler spectral analysis: ??Vascular spectra were obtained from the normal appearing portions of the right ovary. Left ovary: The left ovary measures approximately 3.4 x 2.3 x 2.2 cm. The contour is smooth. There is slight increased echogenicity centrally. This appears similar to the remote study 05/29/17. ?? Color mapping: ??Color signal present. ?? Doppler spectral analysis: ??Vascular spectra were obtained. Free fluid: None. Procedure Note Srini Naidu MD - 06/01/2024 EXAM: PELVIC ULTRASOUND CLINICAL INFORMATION: Follow-up. Suspect right dermoid. TECHNIQUE: Transcutaneous pelvic ultrasound. Transvaginal scanning was performed following voiding to better evaluatethe uterine contents and adnexa. Color mapping was performed. Doppler spectral analysis was performed. Comparison: No recent prior studies are available for comparison. Selected portions of ultrasound 05/29/17. FINDINGS: Quality: Adequate Expected region of vagina: No suspicious abnormality Cervix: The estimated cervical length is approximately 3.0 cm. Nosuspicious abnormality. Uterine position: Retroverted and mildly retroflexed Uterine size: 9.8 x 3.6 x 4.9 cm Endometrium: 0.4 cm. Smooth and homogeneous. Myometrium: Homogeneous and within normal limits. Uterine contour: Smooth Right ovary: The right ovary measures approximate 4.0 x 2.5 x 2.8 cm. There is a homogeneous echogenic oval area within the right ovary whichmeasures 2.0 cm in greatest dimension. There is no shadowing. No abnormalcolor signal. Color mapping: Color signal present within the remainder of the rightovary. Doppler spectral analysis: Vascular spectra were obtained from thenormal appearing portions of the right ovary. Left ovary: The left ovary measures approximately 3.4 x 2.3 x 2.2 cm. Thecontour is smooth. There is slight increased echogenicity centrally. Thisappears similar to the remote study 05/29/17. Color mapping: Color signal present. Doppler spectral analysis: Vascular spectra were obtained. Free fluid: None. IMPRESSION: There is an oval 2.0 cm echogenic abnormality within the right ovary. Icannot confirm stability. Direct comparison with any previous recent studies would be helpful. Depending upon how it might alter patient management, MRI might be helpfulin further characterization. -------- FINAL REPORT -------- Dictated By: Srini Naidu Dictated Date: 06/01/2024 13:51 ET Assigned Physician: Srini Naidu Reviewed and Electronically Signed By: Srini Naidu Signed Date: 06/01/2024 13:58 ET Workstation ID: [id number] Transcribed By: Self Edit Transcribed Date: 06/01/2024 13:51 ET Shantal CLAROS IM US PROCEDURES Final Resul t * Pap smear (05/12/2023) 05/12/2023 Narrative HISTORICAL TESTING LAB RESULTING AGENCY - 05/20/2023 4:45 PM EDT [id number] THINPREP PAP, IMAGED: NEGATIVE FOR SQUAMOUS INTRAEPITHELIAL LESION AND MALIGNANCY . PALLAVI REED(ASCP) (CASE ELECTRONICALLY SIGNED 05 20 2023) RESULT OF APTIMA HIGH RISK HPV ASSAY: HIGH RISK HPV: ??NEGATIVE (SEROTYPES 16,18,31,33,35,39,45,51,52,56,58,59,66,68) COMPLETED ON 2023-05-14 ADEQUACY: SATISFACTORY ENDOCERVICAL/TRANSFORMATION ZONE COMPONENT ABSENT. SOURCE: THINPREP PAP HPV ANY DX: ??REFLEX 16 AND 18, CERVICAL, IMAGED CLINICAL INFORMATION: HPV ANY DIAGNOSIS. PAP HX NEGATIVE, LMP 04/17/23, [Z01.419] Myriam Guo CN LAB CYTOLOGY ORDERABLES Final R esult HISTORICAL TESTING LAB RESULTING AGENCY from Last 3 Months or Most Recently Relevant to Health Maintenance Insurance [facility] [address] [employer] PLAN Care Teams Franchise Sales Representative Relationship Specialty Start Date End Date Bre Smith MD [address] [place] [address] Dr [address] [facility] [place] [address] PCP - General Internal Medicine 12/01/19
== END 2024-08-02 16:11 | disposition home or self-care (01) ==
LOC: HO.HMCH 15:44
PROVIDERS: PCP Internal Medicine; Visit Provider Internal Medicine
DX: R00.0 Tachycardia, unspecified (principal); R14.0 Abdominal distension (gaseous)

== ENCOUNTER 2024-08-02 15:44 | Outpatient (REF) | payer OTHER, SELFPAY ==
[2024-08-02 16:24] LABS: MANUAL DIFF FLAG NO
[2024-08-02 17:08] LABS: Basophils Percent Auto 0.3 % (0-2); Eosinophils Percent Auto 0.3 % (0-4); Hematocrit 37.5 % (37.0-47.0); Hemoglobin 12.4 g/dl (12.0-16.0); Imm Gran Abs Auto 0.04 X10*3/uL (0.00-0.03); Imm Gran Pct Auto 0.3 % (0.0-0.4); Lymphocytes Absolute Auto 3.6 X10*3/uL (1.2-4.9); Lymphocytes Percent Auto 30.2 % (20-40); Mean Corpuscular HGB Conc 33.1 g/dl (31.0-35.0); Mean Corpuscular Hemoglobin 27.1 pg (27.0-33.0); Mean Corpuscular Volume 82.1 fL (80.0-98.0); Mean Platelet Volume 11.7 fL (9.4-12.3); Monocytes Absolute Auto 0.6 X10*3/uL (0.1-1.2); Monocytes Percent Auto 4.6 % (2-11); Neutrophils Absolute Auto 7.7 x10*3/uL (2.0-8.3); Neutrophils Percent Auto 64.3 % (45-73); Platelet Count 289 X10*3/uL (160-400); Red Blood Count 4.57 X10*6/uL (4.20-5.50); Red Cell Distribution Width 13.1 % (11.0-16.0)
[2024-08-02 17:39] LABS: Alanine Aminotransferase 24 U/L (0-31); Albumin Level 4.5 g/dL (3.5-5.0); Alkaline Phosphatase 55 U/L (39-117); Anion Gap 12 (12-20); Aspartate Amino Transferase 27 U/L (5-31); Bilirubin Total 0.8 mg/dL (0.0-1.0); Blood Urea Nitrogen 19 mg/dL (9-16); Calcium 9.4 mg/dL (8.4-10.2); Carbon Dioxide 28 mmol/L (22-29); Chloride 103 mmol/L (96-108); Estimated Glomerular Filt Rate > 60; Glucose Random 86 mg/dL (60-115); Potassium 3.5 mmol/L (3.3-5.1); Sodium 139 mmol/L (135-145); Total Protein 8.2 g/dL (6.5-8.0)
[2024-08-02 17:55] LABS: Thyroid Stimulating Hormone 0.73 uIU/mL (0.32-4.0)
[2024-08-03 20:53] LABS: Gliadin Deamidated IgA Ab <1.0 U/mL; Gliadin Deamidated IgG Ab <1.0 U/mL; Immunoglobulin A 239 mg/dL (47-310); Transglutaminase Ab IgG <1.0 U/mL; Transglutaminase IgA <1.0 U/mL
== END 2024-08-02 15:45 | disposition home or self-care (01) ==
LOC: HO.LAB 15:44
PROVIDERS: PCP Internal Medicine; Visit Provider Internal Medicine
DX: R00.0 Tachycardia, unspecified (principal); R14.0 Abdominal distension (gaseous)
CPT/HCPCS: 36415; 80053; 82784; 84443; 85025; 86258; 86364; 96127; 99212

== ENCOUNTER 2024-08-05 09:33 | Outpatient (REF) | payer OTHER, SELFPAY ==
--- OUTSIDE RECORDS SUMMARY | 2024-08-05 10:34 | XMS_ITS | Clinical Summary ---
Author Organization [facility] [address] [facility] Address [address] [place], [place] Phone Care Team Providers Care Carpet Winder Name Role Phone Bre Smith MD Primary Care Provider [phone] Allergies Active Allergy Reactions Criticality Noted Date [...] Description 07/19/2024 Telephone Obstetrics and Gynecology - [facility] [address] [place] [phone] Cecily [place]ctor DO Metrorrhagia 06/22/2024 3:30 PM EDT Consult Obstetrics & Gynecology - [address] [address] Cecily [place]ctor DO Bilateral ovarian cysts (Primary Dx); Irregular menses 06/03/2024 Telephone Obstetrics & Gynecology - [facility] [address] [place] [address] Opal Erwin RN 06/03/2024 Telephone Obstetrics & Gynecology - [facility] [address] [place] [address] Shantal Tellez CNM Lab Results 06/01/2024 12:48 PM EDT - 06/01/2024 11:59 PM EDT Hospital Encounter [facility] Ultrasound [address] [place] [address] Discharge Disposition: Home or Self [...] ; COMMENT: Desires tubal ligation, referral to [facility] placed Desires Depo-Provera prior to discharge after delivery. Supervision of other normal 02/14/2021 DX:Supervision of other normal ; COMMENT: 1. [facility] site: [place] [address] [facility], [address] 2. Delivery site: [facility] 3. Mobile Mommas: Yes 4. Dating criteria: [...] rufino,Carrier of group B Streptococcus,Marijuana user Delivery Location:[facility] Comments:30 second dawit ulder dystocia , srom 2020 Term 39w 4d 3470 g (122.4 oz) F Vag-S pont None Livin g Vaishali Cui , SHERI Complications:None Delivery Location:[facility] 2021 Term 37w 3d CS-LT ranv Livin g Delivery Location:[facility] Comments:pt elected fo r primary c/s r/t [...] EDT Office Visit Obstetrics & Gynecology - [address] [phone] Cecily [place], DO [address] [place] [address] Health Maintenance Due Date Last Done Comments [...] Signed Date: 06/01/2024 13:58 ET Workstation ID: [id number] Transcribed By: Self Edit Transcribed Date: 06/01/2024 [...] Signed Date: 06/01/2024 13:58 ET Workstation ID: [id number] Transcribed By: Self Edit Transcribed Date: 06/01/2024 13:51 ET Shantal CLAROS IM US PROCEDURES Final Resul t * Pap smear (05/12/2023) 05/12/2023 Narrative HISTORICAL TESTING LAB RESULTING AGENCY - 05/20/2023 4:45 PM EDT [id number] THINPREP PAP, IMAGED: NEGATIVE FOR SQUAMOUS INTRAEPITHELIAL [...] Most Recently Relevant to Health Maintenance Insurance [facility] [employer] Care Teams Carpet Winder Relationship Specialty Start Date End Date Bre Smith MD [address] [place] [address] [address] [facility] [place] [address] PCP - General Internal Medicine 12/01/19
[2024-08-08 11:24] LABS: Prot Elec - Alpha1 0.4 g/dL (0.2-0.3); Prot Elec - Alpha2 0.8 g/dL (0.5-0.9); Prot Elec - Beta 1 0.6 g/dL (0.4-0.6); Prot Elec - Beta 2 0.4 g/dL (0.2-0.5); Prot Elec - Gamma 1.4 g/dL (0.8-1.7); Prot Elec - Total Protein 7.5 g/dL (6.1-8.1)
== END 2024-08-05 09:34 | disposition home or self-care (01) ==
LOC: HO.LAB 09:33
PROVIDERS: PCP Internal Medicine; Visit Provider Internal Medicine
DX: R77.8 Other specified abnormalities of plasma proteins (principal)
CPT/HCPCS: 36415; 84165

== ENCOUNTER → 2024-08-13 12:55 | Outpatient (REF) | payer OTHER, SELFPAY ==
--- OUTSIDE RECORDS SUMMARY | 2024-08-13 13:20 | XMS_ITS | Clinical Summary ---
Author Organization [facility] [address] [facility] Address [address] [place], [place] Phone Care Team Providers Care Inventory Worker Name Role Phone Bre Smith MD Primary Care Provider [phone] Allergies Active Allergy Reactions Criticality Noted Date [...] Description 07/19/2024 Telephone Obstetrics and Gynecology - [facility] [address] [place] [phone] Cecily [place] DO Metrorrhagia 06/22/2024 3:30 PM EDT Consult Obstetrics & Gynecology - [address] [address] Cecily [place] DO Bilateral ovarian cysts (Primary Dx); Irregular menses 06/03/2024 Telephone Obstetrics & Gynecology - [facility] [address] [place] [address] Opal Erwin RN 06/03/2024 Telephone Obstetrics & Gynecology - [facility] [address] [place] [address] Shantal Tellez CNM Lab Results 06/01/2024 12:48 PM EDT - 06/01/2024 11:59 PM EDT Hospital Encounter [facility] Ultrasound [address] [place] [address] Discharge Disposition: Home or Self [...] ; COMMENT: Desires tubal ligation, referral to [facility] placed Desires Depo-Provera prior to discharge after delivery. Supervision of other normal 02/14/2021 DX:Supervision of other normal ; COMMENT: 1. [facility] site: [place] [address] [facility], [address] 2. Delivery site: [facility] 3. Mobile Mommas: Yes 4. [...] rufino,Carrier of group B Streptococcus,Marijuana user Delivery Location:[facility] Comments:30 second dawit ulder dystocia , srom 2020 Term 39w 4d 3470 g (122.4 oz) F Vag-S pont None Livin g Vaishali Cui , SHERI Complications:None Delivery Location:[facility] 2021 Term 37w 3d CS-LT ranv Livin g Delivery Location:[facility] Comments:pt elected fo r primary c/s r/t [...] EDT Office Visit Obstetrics & Gynecology - [address] [phone] Cecily [place], DO [address] [place] [address] Health Maintenance Due Date Last Done Comments [...] Signed Date: 06/01/2024 13:58 ET Workstation ID: [id number] Transcribed By: Self Edit Transcribed Date: 06/01/2024 [...] Signed Date: 06/01/2024 13:58 ET Workstation ID: [id number] Transcribed By: Self Edit Transcribed Date: 06/01/2024 13:51 ET Shantal CLAROS IM US PROCEDURES Final Resul t * Pap smear (05/12/2023) 05/12/2023 Narrative HISTORICAL TESTING LAB RESULTING AGENCY - 05/20/2023 4:45 PM EDT [id number] THINPREP PAP, IMAGED: NEGATIVE FOR SQUAMOUS INTRAEPITHELIAL [...] Most Recently Relevant to Health Maintenance Insurance [facility] [address] [employer] Care Teams Inventory Worker Relationship Specialty Start Date End Date Bre Smith MD [address] [place] [address] Dr Flores [address] [facility] [place] [address] PCP - General Internal Medicine 12/01/19
== END ==
LOC: HO.CARD 12:55
PROVIDERS: PCP Internal Medicine; Visit Provider Internal Medicine
DX: R00.0 Tachycardia, unspecified (principal)
CPT/HCPCS: 93225

== ENCOUNTER → 2024-08-13 12:59 | Outpatient (BNV) | payer OTHER, SELFPAY | PROVIDERS: PCP Internal Medicine; Visit Provider Internal Medicine Cardiovascular Disease | DX: I49.3 Ventricular premature depolarization (principal); R00.0 Tachycardia, unspecified | CPT/HCPCS: 93227 ==

== ENCOUNTER 2024-12-20 09:31 | Outpatient (AMB) | payer OTHER, SELFPAY ==
--- NOTE | 2024-12-20 09:38 | MHC.PC.OV ---
Vital Signs 12/20/24 09:39 Height 4 ft 11 in Weight 155 lb BMI 31.3 BP 110/62 Blood Pressure Location Lt brachial Position Sitting Respiration 18 Pulse 80 Pulse Source Pulse Oximeter Temp 97.3 F Temp Source Temporal Artery Scan Pulse Oximetry (%) 98 Oxygen Delivery Method Room Air Intake Visit Reasons: Annual Exam Siding Coreboard Inspector Required: No Accompanied by: Self / Same As Patient Allergies codeine (CODEINE) Allergy (Severe, Verified 12/20/24 09:58) SWELLING acetaminophen (Tylenol-Codeine) Allergy (Unknown, Verified 12/20/24 09:58) SWELLING Medication List - Last Reconciled 12/20/24 by Kimber Snow MD No Known Home Meds Tobacco use date assessed: 12/20/24 Dental Screening Dental Screen Date: 12/20/24 Did you have a dental visit in the last 12 months?: Yes Did you have a dental problem in the last 6 months where you did not have access to dental care?: No Was dental information given to patient?: Patient has dentist HPI HPI Comments History of Present Illness Details The patient is a 29-year-old female presenting for a physical exam and preventative care. She reports dysmenorrhea and is using control to manage her menstrual cycles. The patient experiences bloating after meals and has been prescribed dicyclomine, which she has not taken due to concerns about side effects. She has a family history of GERD, which she believes may be related to her bloating symptoms. [facility] Surgical History History of Family History Father GERD (gastroesophageal reflux disease) Mother GERD (gastroesophageal reflux disease) Anemia Maternal Grandmother Breast cancer Diabetes Hypertension Paternal Grandfather Diabetes Hypertension Social History Housing: Apartment Alcohol intake: former Patient Tobacco Use Status: Former Tobacco user Tobacco use type: Cigarette e-Cigarette/Vaping Use: Never Used Second Hand Smoke Exposure: No service: No Current occupational status: unemployed Cognitive needs: No Hearing needs: No Vision needs: No Questionnaire Thrive Questionnaire Date Thrive assessed: 08/02/24 I am a: Patient What is your living situation today?: I have a steady place to live Within the past 12 months, did the food you bought not last and you didn't have the money to get more?: Never true Within the past 12 months, did you worry whether your food would run out before you got money to buy more?: Never true Do you have trouble paying for medicines?: No Do you have trouble getting transportation to medical appointments?: No Do you have trouble paying your heating and electricity bill?: Yes Do you have trouble taking care of your child, family member or friend?: No Do you have trouble with day-to-day activities such as bathing, preparing meals, shopping, managing finances, etc.?: No Are you currently unemployed and looking for a job?: No Are you interested in more education?: Yes Please select the resources that you would like help with: None Currently or been in a relationship where the following occur: No concerns reported THRIVE Score: 1 ERNESTINE-7 AMB Questionnaire ERNESTINE-7 Date ERNESTINE - 7 assessed: 08/02/24 Source: Developed by Drs. Lm Nice, Kennedi Roe, Darryl Harvey and colleagues, with an educational mckayla from [employer]. Review of Systems Const All systems reviewed & are unremarkable except as noted in HPI and below Card Denies chest pain at rest, Denies chest pain with activity, Denies edema, Denies irregular heart rhythm, Denies claudication, Denies dyspnea, Denies dyspnea on exertion, Denies orthopnea, Denies paroxysmal nocturnal dyspnea and Denies slow heart rate Resp Denies cough, Denies dyspnea and Denies dyspnea on exertion GI Denies abdominal pain, Denies change in bowel habits, Denies excessive flatus, Denies nausea and Denies vomiting Denies urinary incontinence, Denies urinary hesitancy and Denies urinary urgency Neuro Denies lack of coordination Physical exam (Primary Care) Vital Signs: Last Vital Signs Temp 97.3 F 12/20/24 09:39 Pulse 80 12/20/24 09:39 Resp 18 12/20/24 09:39 BP 110/62 12/20/24 09:39 Pulse Ox 98 12/20/24 09:39 Oxygen Delivery Method Room Air 12/20/24 09:39 BMI result Body Mass Index 31.3 BMI Assessment/Plan discussion: High BMI High, discussed plan: lifestyle, weight reduction, dietary and physical activity Tobacco/Smoking Status: Tobacco use Status Tobacco use date assessed 12/20/24 12/20/24 09:49 Patient Tobacco Use Status Former Tobacco user 12/20/24 09:49 Tobacco use type Cigarette 12/20/24 09:49 e-Cigarette/Vaping Use Never Used 12/20/24 09:49 Thrive Assessment: Date of Thrive Assessment Date Thrive assessed 08/02/24 12/20/24 09:49 Currently or been in a relationship where the following occur: No concerns reported [facility] Head: Yes normal to inspection, Yes normocephalic and Yes atraumatic Ears: external ears normal Eyes General: appearance normal, both eyes and all related structures Eyelids: Yes eyelids normal Conjunctivae: conjunctivae normal Neck Neck: Yes normal visual inspection and Yes supple Resp Effort & Inspection: normal respiratory effort Auscultation: clear to auscultation bilaterally Cardio Jugular venous distension: no JVD Rate: regular rate Rhythm: regular rhythm Heart sounds: S1 normal heart sound present and S2 normal heart sound present GI Inspection: Yes normal to inspection Palpation (GI): Soft to palpation and nontender Auscultation: normal bowel sounds Skin General skin exam: no rashes or lesions noted Neuro General: no focal motor deficits Extrem General: Yes full ROM Psych Appearance: grossly normal Coding Level of Care Code Est Pt Level 3 (02073) Est Pt Prev Care 18-39y(36310) Diagnoses Physical exam Z00.00 Abdominal bloating R14.0 Time Spent (min) 30 Assessment & Plan Assessment & Plan (1) Physical exam: Code(s): Z00.00 - Encounter for general adult medical examination without abnormal findings Category: Medical (2) Abdominal bloating: Code(s): R14.0 - Abdominal distension (gaseous) Category: Medical Plan Plan 1. Encounter for general adult medical examination without abnormal findings Z00.00 Repeat in a year. 2. Abdominal distension (gaseous) R14.0 Dicyclomine was prescribed for bloating, but the patient has not taken it due to concerns about side effects. A 30-day trial was suggested. Orders: Orders Lipid Panel Today Z00.00 - Encounter for general adult medical examination without abnormal findings Comprehensive [place]. Panel Fast Today Z00.00 - Encounter for general adult medical examination without abnormal findings Medications: New dicyclomine 20 mg PO TID 90 tabs 0RF 30 days R14.0 - Abdominal distension (gaseous)
[2024-12-20 09:39] VITALS: BP 110/62; PULSE 80; RESP 18; TEMP 36.3; O2SAT 98; BMI 31.3
--- OUTSIDE RECORDS SUMMARY | 2024-12-20 10:44 | XMS_ITS | Clinical Summary ---
Author Organization [facility] [address] [place] [address] [place] [address] Phone Care Team Providers Care User Experience Analyst Name Role Phone Bre Smith MD Primary Care Provider [phone] Allergies Active Allergy Reactions Criticality Noted Date Comments Codeine Swelling High 05/22/2017 Medications cholecalciferol (VITAMIN D-3) 50 mcg (2,000 unit) capsule Take 1 capsule (2,000 Units total) by mouth 1 (one) time each day. 4 Active methocarbamoL (ROBAXIN) 750 mg tablet TAKE 1 TABLET BY MOUTH EVERY 8 HOURS X3 DAYS 4 Active norethindrone-e thinyl estradiol (JUNEL FE 03/22) 1 mg-20 mcg (21)/75 mg (7) per tablet Take 1 tablet by mouth 1 (one) time each day. 28 tablet 11 5 06/22/19 26 Active valACYclovir (VALTREX) 500 mg tabletIndicatio ns:recurrent herpes genitalis Take 2 tablets (1,000 mg total) by mouth 2 (two) times a day. With onset of outbreak 120 each 5 12/06/19 25 Active Problems Problem Noted Date Diagnosed Date Genital herpes 02/29/2020 Overview (06/21/2024): Episodic treament Last Assessment & Plan: Prescription for Valtrex suppression ordered today. Patient aware to start at 36 weeks. Immunizations Immunization Administration Dates Next Due Influenza Quadravalent, MDCK [...] ; COMMENT: Desires tubal ligation, referral to [facility] placed Desires Depo-Provera prior to discharge after delivery. Supervision of other normal 02/14/2021 DX:Supervision of other normal ; COMMENT: 1. [facility] site: [address], [address] 2. Delivery site: [facility] 3. Mobile Mommas: Yes 4. 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 [place] [address] Cecily [place]ctor DO [address] [place] [address] Health Maintenance Due Date Last Done Comments Hepatitis B Vaccines (1 of 3 - 19+ 3-dose series) 2013 HPV Vaccines (1 - 3-dose SCD M series) 2021 HIV Screening 02/03/2022 Hepatitis C Screening 02/03/2022 Social Influencers of Health Screening 02/03/2022 Depression Screening 03/03/2024 COVID-19 Vaccine (1 - 2023-2 5 season) 2024 Influenza Vaccine (#1) 2024 12/04/2017 Cervical Cancer Screening: P ap Smear 05/11/2026 05/12/2023, 12/02/2019 DTaP,Tdap,and Td Vaccines (4 - Td or Tdap) 06/21/2031 06/20/2021, 07/18/2020, 10/20/2017 RSV Immunization Adult Patients (1 - 1-dose 75+ series) 2069 HIB Vaccines Aged Out No longer eligi [...] 5 Years) and At-Risk Patients (6 to 49 Years) Aged Out No longer eligible b ased on patient's age to complete this topic RSV Immunization Patients Under 20 months Aged Out No longer eligible b ased on patient's age to complete this topic Varicella Vaccines Aged Out No longer eligible based on patient's age to complete this topic Procedures Procedure Name Priority Date/Time Associated Diagnosis Comments PAP SMEAR Routine 05/12/2023 from Last 3 Months or Most Recently Relevant to Health Maintenance Results * Pap smear (05/12/2023) 05/12/2023 Narrative HISTORICAL TESTING LAB RESULTING AGENCY - 05/20/2023 4:45 PM EDT [id number] THINPREP PAP, IMAGED: NEGATIVE FOR SQUAMOUS INTRAEPITHELIAL LESION AND MALIGNANCY . PALLAVI REED(ASCP) (CASE ELECTRONICALLY SIGNED 05 20 2023) RESULT OF APTIMA HIGH RISK HPV ASSAY: HIGH RISK HPV: NEGATIVE (SEROTYPES 16,18,31,33,35,39,45,51,52,56,58,59,66,68) COMPLETED ON 2023-05-14 ADEQUACY: SATISFACTORY ENDOCERVICAL/TRANSFORMATION ZONE COMPONENT ABSENT. SOURCE: THINPREP PAP HPV ANY DX: REFLEX 16 AND 18, CERVICAL, IMAGED CLINICAL INFORMATION: HPV ANY DIAGNOSIS. PAP HX NEGATIVE, LMP 04/17/23, [Z01.419] Myriam CLAROS LAB CYTOLOGY ORDERABLES Final R esult HISTORICAL TESTING LAB RESULTING AGENCY from Last 3 Months or Most Recently Relevant to Health Maintenance Insurance [facility] [employer] Care Teams User Experience Analyst Relationship Specialty Start Date End Date Bre Smith MD [address] [place] [address] Dr [address] [facility] [place] [address] PCP - General Internal Medicine 12/01/19
== END 2024-12-20 10:09 | disposition home or self-care (01) ==
LOC: HO.HMCH 09:32
PROVIDERS: PCP Internal Medicine; Visit Provider Internal Medicine
DX: Z00.00 Encounter for general adult medical examination without abnormal findings (principal); R14.0 Abdominal distension (gaseous)

== ENCOUNTER 2024-12-20 09:31 | Outpatient (REF) | payer OTHER, SELFPAY ==
[2024-12-20 11:21] LABS: Alanine Aminotransferase 25 U/L (0-31); Albumin Level 4.5 g/dL (3.5-5.0); Alkaline Phosphatase 52 U/L (39-117); Anion Gap 14 (12-20); Aspartate Amino Transferase 25 U/L (5-31); Blood Urea Nitrogen 14 mg/dL (9-16); Calcium 9.1 mg/dL (8.4-10.2); Carbon Dioxide 26 mmol/L (22-29); Chloride 102 mmol/L (96-108); Cholesterol 173 mg/dL (<200); Estimated Glomerular Filt Rate > 60; HDL Cholesterol 47 mg/dL (>40); Potassium 4.0 mmol/L (3.3-5.1); Sodium 138 mmol/L (135-145); Total Protein 8.2 g/dL (6.5-8.0); Triglycerides 109 mg/dL (<150)
== END 2024-12-20 09:32 | disposition home or self-care (01) ==
LOC: HO.LAB 09:31
PROVIDERS: PCP Internal Medicine; Visit Provider Internal Medicine
DX: Z00.00 Encounter for general adult medical examination without abnormal findings (principal); R14.0 Abdominal distension (gaseous)
CPT/HCPCS: 36415; 80053; 80061; 99212; 99395